=== PATIENT | female | born 1990 | race Caucasian/White ===

== ENCOUNTER → 2017-10-24 | Outpatient (CLI) | payer MEDICARE, MEDICAID ==
[2017-10-24 15:26] LABS: PLATELET COUNT, AUTOMATED 313 K/uL (150-450)
[2017-10-24 16:04] LABS: LDL CHOLESTEROL 90 mg/dl
== END ==
LOC: LAB 15:07
PROVIDERS: ATTEND Nurse Practitioner Psychiatric/Mental Health
DX: R73.9 Hyperglycemia, unspecified (principal); E83.52 Hypercalcemia; E78.5 Hyperlipidemia, unspecified; R94.5 Abnormal results of liver function studies; R71.0 Precipitous drop in hematocrit; D75.1 Secondary polycythemia
CPT/HCPCS: 36415; 82040; 82247; 82310; 82374; 82435; 82465; 82565; 82728; 82947; 83540; 83718; 84075; 84132; 84155; 84295; 84450; 84460; 84478; 84520; 85025

== ENCOUNTER 2018-07-30 11:29 | Emergency (ER) | payer MEDICARE, MEDICAID ==
[2018-07-30] MEDS ORDERED: VENL150T10 PO (11:55)
[2018-07-30] MEDS ORDERED: ADAL40PE4 SQ (11:55)
[2018-07-30] MEDS ORDERED: SPIR25TA80 PO (11:55)
[2018-07-30] MEDS ORDERED: FEXO1TAB60 PO (11:55)
[2018-07-30] MEDS ORDERED: FENO43CA PO (11:55)
[2018-07-30] MEDS ORDERED: PANT40TA65 PO (11:55)
[2018-07-30] MEDS ORDERED: METF-450 PO (11:55)
--- NOTE | 2018-07-30 11:58 | ER Report ---
History and Physical Time Seen By MD: 11:35 Hx. of Stated Complaint: patient states she had a set of industrial blinds fall on her right wrist last week, patient states ain is getting worse and she has numbness from wrist down into all her fingers and hand. HPI/ROS CHIEF COMPLAINT: Right arm pain HISTORY OF PRESENT ILLNESS: Patient is a 28-year-old female who who presents one week after a set of blinds fell on her right forearm. At the time, she stated that she iced it, placed a wrist splint that she had 4 carpal tunnel syndrome, and he began feeling better. Over the last 2 days, pain has worsened, and patient now complains of shooting pain up her right arm as well as numbness in her fingers. Patient states that she continues to have pain at the site, and is concerned it may be broken. Patient did not have injury to any other body part, was not struck in the head, has not had fevers, chills, vomiting, shortness breath, chest pain. REVIEW OF SYSTEMS: Respiratory: No cough, no dyspnea. Cardiovascular: No chest pain, no palpitations. Gastrointestinal: No vomiting, no abdominal pain. Musculoskeletal: No back pain. Remainder of the 14 system rev: Yes Allergies: Uncoded Allergies: sulfa eye drops (Allergy, Intermediate, increased redness, 07/30/18) Home Meds Reported Medications Levonorgestrel-Eth Estradiol (KURVELO) 1 Each Tablet, 1 EACH PO QDAY 07/30/18 Fexofenadine/Pseudoephedrine (DORY-D 12 HOUR TABLET) 1 Each Tab.er.12h, 1 TAB PO QDAY 07/30/18 Fenofibrate,Micronized (FENOFIBRATE) 43 Mg Capsule, PO QDAY, CAPSULE 07/30/18 Spironolactone (SPIRONOLACTONE) 25 Mg Tablet, PO BID, TAB 07/30/18 Adalimumab (HUMIRA) 40 Mg/0.8 Ml Pen.ij.kit, 40 MG SQ QWK 07/30/18 Metformin Hcl (METFORMIN HCL) 500 Mg Tablet, 1 TAB PO BID, TAB 07/30/18 Venlafaxine Hcl (VENLAFAXINE HCL ER) 150 Mg Tab.er.24, 300 MG PO QDAY 07/30/18 Pantoprazole Sodium (PANTOPRAZOLE SODIUM) 40 Mg Tablet.dr, 40 MG PO QDAY, TAB.SR 07/30/18 Reviewed Nurses Notes: Yes Constitutional Vital Sign - Last 24 Hours 07/30/18 07/30/18 07/30/18 07/30/18 11:34 11:44 12:14 12:30 Temp 99.0 Pulse 103 102 90 Resp 16 B/P (MAP) 139/96 146/95 (112) Pulse Ox 94 93 93 O2 Delivery Room Air 07/30/18 12:35 B/P (MAP) 131/82 (98) Physical Exam General Appearance: The patient is alert, has no immediate need for airway protection and no current signs of toxicity. [ ] Eyes: Pupils equal and round no injection. Respiratory: lungs are clear to auscultation Cardiac: regular rate and rhythm Musculoskeletal: no clavicle ttp, no humerus ttp, FROM humerus and elbow. Of note, pt is holding her dominant r hand with elbow flexed at 90 degrees. No c5 anesthesia. 5/5 ms throughout. reported decreased lt touch and pinprick to thumb, index, middle finger. Nl lt touch and pinprick to 4-5th finger. 2 point disc intact. No snuff box ttp. Bony ttp of radius at distal 1/3 of diaphysis. compartments soft Extremities have full range of motion and are non tender. Skin: No rashes or lesions. DIFFERENTIAL DIAGNOSIS: After history and physical exam differential diagnosis was considered for fracture, nerve compression, compartment syndrome, or other complication of injury Medical Decision Making ED Course/Re-evaluation ED Course Pt has no e/o fracture; on exam she is flexing right forearm, with resultant muscle tension and likely compression of peripheral sensory nerve. Will provide sling, keep above heart, RICE. Decision to Disposition Date: Jul 30, 2018 Decision to Disposition Time: 12:24 Depart Departure Latest Vital Signs Vital Signs Date Time Temp Pulse Resp B/P (MAP) Pulse Ox O2 Delivery O2 Flow Rate FiO2 07/30/18 12:35 131/82 (98) 07/30/18 12:14 90 93 07/30/18 11:34 99.0 16 Room Air Impression: Primary Impression: Contusion of bone Additional Impression: Arm paresthesia, right Condition: Improved Disposition: HOME OR SELF-CARE Referrals: ALISIA RECINOS (PCP) Patient Instructions: Contusion in Adults (ED) Additional Instructions: As we discussed, I recommend you ice your forearm, use sling as needed for rest, keep above level of heart, and otherwise return to normal activity as possible. Problem Qualifiers JOSY BUTT MD Jul 30, 2018 11:58
[2018-07-30] MEDS ORDERED: LEVO1TAB9 PO (11:59)
[2018-07-30 12:35] VITALS: BP 131/82
--- NOTE | 2018-07-30 12:48 | RADIOLOGY IMAGING REPORT ---
FACILITY: [facility] - [place] PATIENT NAME: Mary Beth Fournier : 1990 MR: [id number] V: [id number] EXAM DATE: ORDERING PHYSICIAN: JOSY BUTT TECHNOLOGIST: Location: [facility] Patient: Mary Beth Fournier : 1990 Visit/Account:[id number] Date of Sevice: 07/30/2018 WRIST RIGHT MIN 3 VIEW HISTORY: Injury COMPARISON: None FINDINGS: AP lateral and oblique views of the right wrist were obtained. No evidence of acute fractur e or dislocation. Carpal rows are well aligned. Scaphoid bone is intact. Scapholunate and lunotriquet ral intervals are normal. IMPRESSION: No evidence of acute osseous injury. Report Dictated By: Javier Arce at 07/30/2018 12:39 PM Report E-Signed By: Javier Arce at 07/30/2018 12:43 PM WSN:[id number]
--- NOTE | 2018-07-30 12:59 | RADIOLOGY IMAGING REPORT ---
FACILITY: [facility] PATIENT NAME: Mary Beth Fournier : 1990 MR: [id number] V: [id number] EXAM DATE: ORDERING PHYSICIAN: JOSY BUTT TECHNOLOGIST: Location: [facility] Patient: Mary Beth Fournier : 1990 Visit/Account:[id number] Date of Sevice: 07/30/2018 FOREARM RIGHT HISTORY: Injury COMPARISON: None FINDINGS: AP and lateral views of the right forearm demonstrates that the radius and ulna are unremar kable. There is no evidence of lytic or blastic bony lesions. The visualized soft tissues are unremar kable. IMPRESSION: No acute osseous abnormality Report Dictated By: Javier Arce at 07/30/2018 12:43 PM Report E-Signed By: Javier Arce at 07/30/2018 12:55 PM WSN:[id number]
== END 2018-07-30 12:54 | disposition home or self-care (01) ==
LOC: ER 11:42
DX: S50.11XA Contusion of right forearm, initial encounter (principal); R20.2 Paresthesia of skin
CPT/HCPCS: 73090; 73110; 99284; A4565

== ENCOUNTER → 2018-10-27 | Outpatient (CLI) | payer MEDICARE, MEDICAID ==
[~2018-10-27] MED LIST: ADAL40PE4 SQ; FENO43CA PO; FEXO1TAB60 PO; LEVO1TAB9 PO; METF-450 PO; PANT40TA65 PO; SPIR25TA80 PO; VENL150T10 PO
--- NOTE | 2018-10-27 09:22 | RADIOLOGY IMAGING REPORT ---
FACILITY: [facility] - [place] PATIENT NAME: Mary Beth Fournier : 1990 MR: [id number] V: [id number] EXAM DATE: ORDERING PHYSICIAN: TRUPTI ARZATE TECHNOLOGIST: Location: [facility] Patient: Mary Beth Fournier : 1990 Visit/Account:[id number] Date of Sevice: 10/27/2018 Technique: LIVER HISTORY: Abnormal liver enzymes Comparison: None Technique: Multiple grayscale, color and Doppler sonographic images were obtained for an ultrasound o f the right upper quadrant. Findings: The liver is enlarged in size measuring 20 cm. Overall, there is increased echotexture throughout th e hepatic parenchyma. There is normal hepatopedal portal venous flow. Gallbladder wall thickness is 2 mm with no evidence of shadowing stone or sludge within the gallbladd er lumen. Negative sonographic Ross's sign reported by the technologist. Common duct measures 4 mm in maximum diameter with no evidence of shadowing stone. Imaged portions of the pancreas are unremarkable. Abdominal aorta and IVC are patent and unremarkable. The right kidney is normal in size, contour, and echotexture measuring 10.6 cm x 4.9 cm x 6.3 cm. IMPRESSION: 1. Hepatomegaly in the background setting of hepatic steatosis. Report Dictated By: Brian Urena DO at 10/27/2018 9:04 AM Report E-Signed By: Brian Urena DO at 10/27/2018 9:17 AM WSN:[id number]
== END ==
LOC: US 10-13 00:23
PROVIDERS: ATTEND Internal Medicine
DX: K76.0 Fatty (change of) liver, not elsewhere classified (principal); R16.0 Hepatomegaly, not elsewhere classified
CPT/HCPCS: 76705

== ENCOUNTER 2019-01-12 17:22 | Emergency (ER) | payer MEDICARE, MEDICAID ==
[2019-01-12 17:24] VITALS: BP 135/92
[2019-01-12] MEDS ORDERED: SPIR100T30 PO (17:31)
[2019-01-12] MEDS ORDERED: ROPI0.5T25 (17:31)
[2019-01-12] MEDS ORDERED: NS(*) 0.9% 1000 ML BAG 1,000 ML IV ONE (17:40)
--- NOTE | 2019-01-12 17:40 | ER Report ---
History and Physical Time Seen By MD: 17:30 Hx. of Stated Complaint: pt reports llq pain that started friday evening. sent from [facility] HPI/ROS CHIEF COMPLAINT: Left lower quadrant abdominal pain HISTORY OF PRESENT ILLNESS: 28-year-old female patient presents to emergency room with complaint of left lower quadrant abdominal pain. Patient states she's been having pain for the past 3 days. Patient states the pain started when she was traveling. She states the pain has seemed to worsen. When she got home she is able to pack, however she states that moving around seems to make the pain worse. She states that she's not had any fevers, chills, nausea, vomiting or diarrhea. Patient rates her pain a 7 out of 10, but states that he can get significantly worse. Patient states that movement seems to make the pain hurts the most. She states she is able to eat and drink without any difficulties. She did go to [facility], which found a negative urine hCG, negative urinalysis. REVIEW OF SYSTEMS: Respiratory: No cough, no dyspnea. Cardiovascular: No chest pain, no palpitations. Gastrointestinal: As noted above Musculoskeletal: No back pain. Allergies: Uncoded Allergies: sulfa eye drops (Allergy, Intermediate, increased redness, 07/30/18) Home Meds Active Scripts Ondansetron 4 Mg Odt (ONDANSETRON 4 MG ODT) 4 Mg Tab.rapdis, 4 MG PO Q6H PRN for NAUSEA/VOMITING, #20 TAB Prov:ROJELIO LAURA [facility] 01/12/19 Hydrocodone Bit/Acetaminophen (HYDROCODON-ACETAMINOPHEN 5-325) 1 Each Tablet, 1 EACH PO Q4-6H PRN for PAIN, #12 TAB Prov:ROJELIO LAUAR [facility] 01/12/19 Reported Medications Ropinirole Hcl (ROPINIROLE HCL) 0.5 Mg Tablet, QDAY 01/12/19 Spironolactone (ALDACTONE) 100 Mg Tablet, 100 MG PO BID 01/12/19 Levonorgestrel-Eth Estradiol (KURVELO) 1 Each Tablet, 1 EACH PO QDAY 07/30/18 Fexofenadine/Pseudoephedrine (DORY-D 12 HOUR TABLET) 1 Each Tab.er.12h, 1 TAB PO QDAY 07/30/18 Fenofibrate,Micronized (FENOFIBRATE) 43 Mg Capsule, PO QDAY, CAPSULE 07/30/18 Adalimumab (HUMIRA) 40 Mg/0.8 Ml Pen.ij.kit, 40 MG SQ QWK 07/30/18 Metformin Hcl (METFORMIN HCL) 500 Mg Tablet, 1 TAB PO BID, TAB 07/30/18 Venlafaxine Hcl (VENLAFAXINE HCL ER) 150 Mg Tab.er.24, 300 MG PO QDAY 07/30/18 Pantoprazole Sodium (PANTOPRAZOLE SODIUM) 40 Mg Tablet.dr, 40 MG PO QDAY, TAB.SR 07/30/18 Discontinued Reported Medications Spironolactone (SPIRONOLACTONE) 25 Mg Tablet, PO BID, TAB 07/30/18 Past Medical/Surgical History Patient has a past medical history of reflux, PCOS, right wrist fracture, Hidradenitis suppurativa. Patient has surgical history of excision of left axilla 4, biopsy 1. Reviewed Nurses Notes: Yes Constitutional Vital Sign - Last 24 Hours 01/12/19 01/12/19 01/12/19 01/12/19 17:24 17:30 17:45 18:00 Temp 98.5 Pulse 108 106 97 97 Resp 18 B/P (MAP) 135/92 Pulse Ox 93 93 93 92 O2 Delivery Room Air 01/12/19 01/12/19 01/12/19 01/12/19 18:30 18:45 19:00 19:15 Pulse 94 93 97 100 Pulse Ox 91 93 95 94 Physical Exam General Appearance: The patient is alert, has no immediate need for airway protection and no current signs of toxicity. Respiratory: Chest is non tender, lungs are clear to auscultation. Cardiac: regular rate and rhythm Gastrointestinal: Abdomen is soft and tender in the left lower quadrant, no masses, bowel sounds normal. Musculoskeletal: Neck: Neck is supple and non tender. Extremities have full range of motion and are non tender. Skin: No rashes or lesions. DIFFERENTIAL DIAGNOSIS: After history and physical exam differential diagnosis was considered for abdominal pain including but not limited to appendicitis, cholecystitis, gastritis and urinary tract infection. Medical Decision Making Data Points Result Diagram: 01/12/19 1736 01/12/19 1736 Laboratory Hematology Test 01/12/19 17:36 Red Blood Count 4.61 M/uL (4.17-5.56) Mean Corpuscular Volume 89.7 fL (80.0-96.0) Mean Corpuscular Hemoglobin 31.3 pg (26.0-33.0) Mean Corpuscular Hemoglobin Concent 34.9 g/dL (32.0-36.0) Red Cell Distribution Width 12.4 % (11.5-14.5) Mean Platelet Volume 8.9 fL (7.2-11.1) Neutrophils (%) (Auto) 53.6 % (39.4-72.5) Lymphocytes (%) (Auto) 34.7 % (17.6-49.6) Monocytes (%) (Auto) 9.1 % (4.1-12.4) Eosinophils (%) (Auto) 1.2 % (0.4-6.7) Basophils (%) (Auto) 1.4 % (0.3-1.4) Nucleated RBC Relative Count (auto) 0.0 /100WBC Neutrophils # (Auto) 4.5 K/uL (2.0-7.4) Lymphocytes # (Auto) 2.9 K/uL (1.3-3.6) Monocytes # (Auto) 0.8 K/uL (0.3-1.0) Eosinophils # (Auto) 0.1 K/uL (0.0-0.5) Basophils # (Auto) 0.1 K/uL (0.0-0.1) Nucleated RBC Absolute Count (auto) 0.00 K/uL Sodium Level 138 mmol/L (137-145) Potassium Level 3.8 mmol/L (3.5-5.0) Chloride Level 103 mmol/L (98-107) Carbon Dioxide Level 24 mmol/L (22-31) Blood Urea Nitrogen 12 mg/dl (7-18) Creatinine 0.80 mg/dl (0.52-1.04) Glomerular Filtration Rate Calc > 60.0 Random Glucose 97 mg/dl (75-110) Calcium Level 9.7 mg/dl (8.4-10.2) Total Bilirubin 0.3 mg/dl (0.2-1.3) Aspartate Amino Transf (AST/SGOT) 57 U/L (0-35) Alanine Aminotransferase (ALT/SGPT) 54 U/L (0-56) Alkaline Phosphatase 41 U/L (0-126) Total Protein 8.2 g/dl (6.3-8.2) Albumin 4.8 g/dl (3.5-5.0) Amylase Level 82 U/L (0-110) Lipase 150 U/L (23-300) Chemistry Test 01/12/19 17:36 White Blood Count 8.4 k/uL (4.5-11.0) Red Blood Count 4.61 M/uL (4.17-5.56) Hemoglobin 14.4 g/dL (12.0-16.0) Hematocrit 41.3 % (34.0-47.0) Mean Corpuscular Volume 89.7 fL (80.0-96.0) Mean Corpuscular Hemoglobin 31.3 pg (26.0-33.0) Mean Corpuscular Hemoglobin Concent 34.9 g/dL (32.0-36.0) Red Cell Distribution Width 12.4 % (11.5-14.5) Platelet Count 387 K/uL (150-450) Mean Platelet Volume 8.9 fL (7.2-11.1) Neutrophils (%) (Auto) 53.6 % (39.4-72.5) Lymphocytes (%) (Auto) 34.7 % (17.6-49.6) Monocytes (%) (Auto) 9.1 % (4.1-12.4) Eosinophils (%) (Auto) 1.2 % (0.4-6.7) Basophils (%) (Auto) 1.4 % (0.3-1.4) Nucleated RBC Relative Count (auto) 0.0 /100WBC Neutrophils # (Auto) 4.5 K/uL (2.0-7.4) Lymphocytes # (Auto) 2.9 K/uL (1.3-3.6) Monocytes # (Auto) 0.8 K/uL (0.3-1.0) Eosinophils # (Auto) 0.1 K/uL (0.0-0.5) Basophils # (Auto) 0.1 K/uL (0.0-0.1) Nucleated RBC Absolute Count (auto) 0.00 K/uL Glomerular Filtration Rate Calc > 60.0 Calcium Level 9.7 mg/dl (8.4-10.2) Total Bilirubin 0.3 mg/dl (0.2-1.3) Aspartate Amino Transf (AST/SGOT) 57 U/L (0-35) Alanine Aminotransferase (ALT/SGPT) 54 U/L (0-56) Alkaline Phosphatase 41 U/L (0-126) Total Protein 8.2 g/dl (6.3-8.2) Albumin 4.8 g/dl (3.5-5.0) Amylase Level 82 U/L (0-110) Lipase 150 U/L (23-300) EKG/Imaging Imaging COMPUTED TOMOGRAPHY OF THE Abdomen and Pelvis with CONTRAST INDICATION: Abdominal pain. TECHNIQUE: Contiguous axial 3.[address] images were obtained through the abdomen and pelvis after 75 cc Isovue-[id number]. Coronal and sagittal reformatted images were submitted. COMPARISON: None. FINDINGS: Lung bases: The lung bases are clear. Liver and hepatic vasculature: Liver parenchymal density is diffusely decreased. Gallbladder and bile ducts: Normal gallbladder. Spleen: Normal Pancreas: Normal Adrenals: Normal Kidneys, ureters and bladder: Symmetric enhancement. No hydronephrosis or obstruction. Normal-appearing bladder. Retroperitoneum and aorta: Normal caliber aorta. GI tract, mesentery and peritoneum: Normal appendix. No bowel obstruction. No findings of diverticulitis. No free fluid or free air. Uterus and adnexa: The uterus is unremarkable. Both ovaries are prominent. Bones and soft tissues: No acute osseous abnormality. IMPRESSION: 1. No clear evidence of acute intra-abdominal abnormality. 2. No urinary tract calculus or collecting system obstruction. 3. Normal appendix. 4. The ovaries are mildly prominent. 5. Hepatic steatosis. One of the following dose optimization techniques was utilized in the performance of this exam: Automated exposure control; adjustment of the mA and/or kV according to the patient's size; or use of an iterative reconstruction technique. Specific details can be referenced in the facility's radiology CT exam operational policy. Report Dictated By: Lenore Stratton MD at 01/12/2019 6:42 PM Report E-Signed By: Lenore Stratton MD at 01/12/2019 6:58 PM ED Course/Re-evaluation ED Course Patient was admitted to an exam room, history and physical were obtained. Differential diagnoses were considered. On examination lungs are clear, heart is regular, abdomen is soft and tender in the left lower quadrant. An IV was started, a CBC, CMP was done. Lab results were unremarkable. A CT scan of the abdomen and pelvis was done which showed no acute findings. Did state that both the ovaries were prominent. I believe that the left ovary is likely the cause of this. I suspect there is likely a ovarian cyst which is developing. I did consider doing an ultrasound. However with patient having pain that would fluctuate, but not go from being nonexistent to being the worst pain of her life I do not believe this is a ovarian torsion. Patient is return to emergency room if condition worsens. She is to limit her activity by pain. She is follow-up with her primary care provider in the next week. Patient verbalized understanding and agreement with plan. Decision to Disposition Date: Jan 12, 2019 Decision to Disposition Time: 19:20 Depart Departure Latest Vital Signs Vital Signs Date Time Temp Pulse Resp B/P (MAP) Pulse Ox O2 Delivery O2 Flow Rate FiO2 01/12/19 19:15 100 94 01/12/19 17:24 98.5 18 135/92 Room Air Impression: Primary Impression: Ovarian cyst Condition: Improved Disposition: HOME OR SELF-CARE Referrals: ALISIA RECINOS (PCP) New Scripts Ondansetron 4 Mg Odt (ONDANSETRON 4 MG ODT) 4 Mg Tab.rapdis 4 MG PO Q6H PRN for NAUSEA/VOMITING, #20 TAB Prov: ROJELIO LAURA 01/12/19 Hydrocodone Bit/Acetaminophen (HYDROCODON-ACETAMINOPHEN 5-325) 1 Each Tablet 1 EACH PO Q4-6H PRN for PAIN, #12 TAB Prov: ROJELIO LAURA 01/12/19 Patient Instructions: Ovarian Cyst (ED) Additional Instructions: Follow up with your primary care provider in the next week. Return to the ER if condition worsens. Increase fluid intake. Get plenty of rest. Continue with the heating pad. Limit activity by pain Problem Qualifiers Primary Impression: Ovarian cyst Laterality: left Qualified Codes: N83.202 - Unspecified ovarian cyst, left side ROJELIO LAURA Jan 12, 2019 17:40
[2019-01-12 17:50] LABS: PLATELET COUNT, AUTOMATED 387 K/uL (150-450)
[2019-01-12] MEDS ORDERED: IOPAMIDOL 76% 150 ML INFUS BTL 150 ML ONE (18:00)
[2019-01-12] MEDS ORDERED: MORPHINE 4 MG/ML SDV IVP ONE (18:10)
--- NOTE | 2019-01-12 19:03 | RADIOLOGY IMAGING REPORT ---
FACILITY: [facility] - [place] PATIENT NAME: Mary Beth Fournier : 1990 MR: [id number] V: [id number] EXAM DATE: ORDERING PHYSICIAN: ROJELIO LAURA TECHNOLOGIST: Location: [facility] [place] Patient: Mary Beth Fournier : 1990 Visit/Account:[id number] Date of Sevice: 01/12/2019 COMPUTED TOMOGRAPHY OF THE Abdomen and Pelvis with CONTRAST INDICATION: Abdominal pain. TECHNIQUE: Contiguous axial 3.[address] images were obtained through the abdomen and pelvis after 75 c c Isovue-370. Coronal and sagittal reformatted images were submitted. COMPARISON: None. FINDINGS: Lung bases: The lung bases are clear. Liver and hepatic vasculature: Liver parenchymal density is diffusely decreased. Gallbladder and bile ducts: Normal gallbladder. Spleen: Normal Pancreas: Normal Adrenals: Normal Kidneys, ureters and bladder: Symmetric enhancement. No hydronephrosis or obstruction. Normal-appear ing bladder. Retroperitoneum and aorta: Normal caliber aorta. GI tract, mesentery and peritoneum: Normal appendix. No bowel obstruction. No findings of diverticuli tis. No free fluid or free air. Uterus and adnexa: The uterus is unremarkable. Both ovaries are prominent. Bones and soft tissues: No acute osseous abnormality. IMPRESSION: 1. No clear evidence of acute intra-abdominal abnormality. 2. No urinary tract calculus or collecting system obstruction. 3. Normal appendix. 4. The ovaries are mildly prominent. 5. Hepatic steatosis. One of the following dose optimization techniques was utilized in the performance of this exam: Autom ated exposure control; adjustment of the mA and/or kV according to the patient's size; or use of an i terative reconstruction technique. Specific details can be referenced in the facility's radiology C T exam operational policy. Report Dictated By: Lenore Stratton MD at 01/12/2019 6:42 PM Report E-Signed By: Lenore Stratton MD at 01/12/2019 6:58 PM [id number]
[2019-01-12] MEDS ORDERED: ONDA4TAB9 PO (19:18)
[2019-01-12] MEDS ORDERED: HYDR-385 PO (19:18)
== END 2019-01-12 19:45 | disposition home or self-care (01) ==
LOC: ER 17:50
DX: N83.202 Unspecified ovarian cyst, left side (principal)
CPT/HCPCS: 74177; 82150; 83690; 85025; 96361; 96374; 99284; J2270; J7030; Q9967; 82040; 82247; 82310; 82374; 82435; 82565; 82947; 84075; 84132; 84155; 84295; 84450; 84460; 84520